=== PATIENT | male | born 1960 | race Caucasian/White ===

== ENCOUNTER 2020-04-09 16:15 | Observation (INO) ==
[2020-04-09] MEDS ORDERED: MoRPHine SULFATE 4 MG/ML 1 ML CARP\\VIAL IV PRN (16:28)
[2020-04-09] MEDS ORDERED: ONDANSETRON INJ 2 MG/ML 2 ML VIAL IV STA (16:28)
[2020-04-09] MEDS ORDERED: SODIUM CHLORIDE 0.9% 500 ML IV SCH (16:30)
--- NOTE | 2020-04-09 16:38 | Emergency Department Note ---
Impression & Plan Concussion, Laceration of scalp, Fall, Sprain of left shoulder, Vertigo ED Provider Note NAME: LISA HAMPTON AGE: 59 SEX: M : 1960 ARRIVES VIA: Ambulance INFORMANT: Patient, ED PROVIDER(S): Cj Rebolledo MD Chief Complaint: Fall, head LAC HPI: Patient reportedly [place] [address] when the patient states that he had pulled over to reattach the tarp when apparently it was not reattached well and the patient subsequently fell from the side of his trailer onto his left side. The patient does primarily complain of some mild posterior head left shoulder pain. The patient is right-hand dominant. 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 The patient does believe that he had LOC for approximately 30 seconds. The patient does take a low-dose baby aspirin as a preventative medication and has a history of hyperlipidemia. The patient otherwise does not complain of any additional pain at this time. Patient states that he did have a feeling of [id number] for short times but that has since resolved and patient does not have any focal numbness tingling or weakn ess. ROS: See HPI for pertinent positives and negatives. A total of 10 systems were reviewed and otherwise negative. Past medical history: See below Surgical history: See below Social history: See below Physical Exam: GENERAL: On a backboard and c-collar in place. NAD, non-toxic. EYE EXAM: Normal conjunctiva. PERRL, no anisocoria and EOM's grossly intact w/o pain. Head: Occipital head laceration 3 cm V-shaped, currently hemostatic. NECK: Supple, no nuchal rigidity, no adenopathy, non-tender. No signs of meningismus. C-collar in place. Trachea midline. S: No chest wall pain, laceration, crepitus or flail chest noted LUNGS: Clear to auscultation. Normal chest wall mechanics. HEART: NSR, no MRG. ABDOMEN: Abdomen soft, non-tender, normo-active bowel sounds, no masses, no rebound or guarding. BACK: No CVA TTP. SKIN: No rashes and no bruising. UPPER EXTREMITIES: Pain to the left shoulder. No obvious deformity. Slightly decreased range of motion secondary to pain but compartments are soft neurovascular intact distally. No right upper extremity pain or TTP. LOWER EXTREMITIES: Grossly normal, no edema. No leg length discrepancy or obvious deformity. No TTP. NEURO EXAM: A&O x3, cranial nerves II-XII grossly intact, normal speech, moves all 4 extremities on command w/o issue. Differential diagnoses: Fracture, dislocation, contusion, intra-abdominal, pneumothorax, intrathoracic, intracranial, neurologic, compartment syndrome, rhabdomyolysis, as well as other pathologies. Course: Patient was seen and evaluated the bedside. Full history physical exam was performed. EKG: None Imaging Studies: Radiology results as stated below per my review in the radiologist's inte rpretation: XR shoulder LT min 2V routine HISTORY: 59 years-old Male s/p fall w/ pain acute left shoulder pain status post fall COMPARISON: Chest radiograph of same day TECHNIQUE: 3 views of the left shoulder FINDINGS: Moderate AC joint with mild glenohumeral osteoarthritis. No acute fracture, dislocation or opaque foreign body. Imaged lung plaza appear clear. IMPRESSION: No acute fracture or dislocation. ACT 112: Negative or not required by law. The above report was generated using voice recognition software. It may contain grammatical, syntax or spelling errors. Electronically signed by: Ezequiel Argueta M.D. 04/09/2020 6:14 PM Dictated: 04/09/201812 Transcribed: 04/09/201812 CT head/brain wo con CLINICAL HISTORY: 59 years-old Male with s/p fall from [facility]. Acute head injury status post fall TECHNIQUE: Multiple axial CT images of the head were obtained without contrast. A dose lowering technique was utilized adhering to the principles of ALARA. CT DOSE: 638.56 mGycm COMPARISON: None. FINDINGS: No definite acute intracranial hemorrhage, midline shift, hydrocephalus, territorial ischemia or abnormal extra-axial collection. There is an ovoid 1.7 x 1.0 cm partially calcified lesion involving the periventricular white matter of the right frontal lobe on image 13 series 2. There is no significant surrounding vasogenic edema or mass effect. Megacisterna magna. The calvarium is intact. There is mild subcutaneous edema of the occipital scalp without large hematoma. The paranasal sinuses, mastoid air cells, and middle ear cavities are clear. IMPRESSION: 1. No acute intracranial hemorrhage or calvarial fracture. 2. Small contusion of the occipital scalp. 3. Ovoid 1.7 x 1.0 cm partially calcified lesion involving the periventricular white matter of the right frontal lobe is present without significant vasogenic edema or adjacent mass effect. This finding is concerning for a possible glial neoplasm and should be correlated with a nonemergent follow-up MRI of the brain with and without contrast ACT 112: Negative or not required by law. The above report was generated using voice recognition software. It may contain grammatical, syntax or spelling errors. Electronically signed by: Ezequiel Argueta M.D. 04/09/2020 5:14 PM Dictated: 04/09/201708 Transcribed: 04/09/201708 XR chest 1V portable HISTORY: 59 years-old Male s/p fall from tractor trailer trailer acute chest trauma status post fall COMPARISON: Left shoulder radiographs of same day TECHNIQUE: Portable AP view of the chest FINDINGS: Cardiomediastinal and hilar silhouettes are within normal limits. No pneumothorax, pleural effusion, airspace consolidation or overt pulmonary edema. Bones of the chest appear grossly intact. IMPRESSION: No acute process. ACT 112: Negative or not required by law. The above report was generated using voice recognition software. It may contain grammatical, syntax or spelling errors. Electronically signed by: Ezequiel Argueta M.D. 04/09/2020 6:15 PM Dictated: 04/09/201813 Transcribed: 04/09/201813 CT DOSE: 487.91 mGycm CLINICAL HISTORY: 59 years-old Male with s/p fall from tractor trailer trailer. Acute head and neck injury status post fall COMPARISON: Head CT of same day. TECHNIQUE: Multiple axial CT images of the cervical spine were obtained without contrast. A dose lowering technique was utilized adhering to the principles of ALARA. FINDINGS: Moderate to severe disc space narrowing at C6-C7 with moderate spondylitic spurring and posterior disc osteophyte complex. Mild to moderate disc space narrowing at C5-C6. Multilevel moderate spondylitic spurring with small posterior disc osteophyte complex formations. Moderate multilevel facet arthrosis. No acute fracture or subluxation. Mild kyphotic curvature centered at C6-C7. Minimal convex right curvature of the mid to lower cervical spine. Mastoid air cells are clear. Evaluation of the central canal and neuroforamina is better assessed by MRI. Multilevel foraminal narrowing is noted. No pneumothorax. Soft tissues are unremarkable. Calcified plaque of the carotid bulbs. No prevertebral soft tissue swelling. IMPRESSION: No acute fracture or subluxation. ACT 112: Negative or not required by law. The above report was generated using voice recognition software. It may contain grammatical, syntax or spelling errors. Electronically signed by: Ezequiel Argueta M.D. 04/09/2020 5:28 PM Dictated: 04/09/201723 Transcribed: 04/09/201723 MRI head: Impression: No evidence of acute infarction. 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 Otherwise, no mass lesion, mass-effect, or hemorrhage. Radiologist: Nabeel Lynn MD Cardiac monitoring: An order was placed for continuous cardiac monitoring. The monitor shows a rate of 88 with sinus rhythm. Seizures: Location: Occipital scalp Total length: 3 cm V shaped Complexity: Simple Verbal consent was obtained after the risks and benefits were explained, including but not limited to bleeding, scarring, infection, pain, and bone/joint/nerve damage. At this time, the risks of the procedure are less than the risks of NOT performing the procedure. A time out was taken and the correct patient and site identified. The skin was prepped with betadine. Copious irrigation was performed using sterile saline with small Fraire Betadine. The skin was re-prepped with betadine and a sterile field set. The wound was explored for foreign bodies and none found. Examination revealed no injury to deep structures such as tendons, bone, or significant blood vessels. Debridement was not performed. The wound edges were approximated using 3 kasandra. Hemostasis and excellent approximation was achieved.Detailed wound care instructions and signs and symptoms of infection reviewed with the patient. No complications and the patient tolerated the procedure well. MDM: Patient was seen due to concern for trauma. Blood work was obtained along a CT of the head and cervical spine. Patient did have a shoulder x-ray completed as well. The patient does not complain of any chest abdomen back or other pain. The patient was removed from his backboard while his C-spine position was maintained and the patient had no pain in the thoracic posterior back lower back or L-spine pain. Patient cervical spine was cleared. The patient had a normal white count H&H and platelet count. The patient does have creat of 1.5. Unknown as to whether or not this is his baseline or mild ELLIE. The patient did receive some IV fluids. The patient states that he was comfortable. Patient's CT of the head did show the concern for possible neoplasm of the brain. The patient was counseled on this and after discussion the patient would prefer to have this completed now do not think is unreasonable. Patient's CT of the head was negative for acute fracture or ICH. There is no evidence of any vasogenic edema. The patient's x-rays were negative. I did discuss the patient's MRI results with the on-call neurologist who stated that sometimes they can precipitate seizures but given the patient's age and lack of seizure activity this is less likely. She did recommend repeat imaging in approximately 6 months. After reassessment several times the patient has had significant dizziness and vertiginous symptoms after movement. Patient does not believe he be able to go home as the patient cannot walk comfortably without feeling very nauseous or wanting to vomit. The patient was ordered additional IV fluids and antiemetics. I did speak with the on-call hospitalist Dr. Lowery. Patient was admitted to the medicine service. Past Med/Surg History Medical History Hyperlipidemia Surgical History (Updated 04/10/20 @ 14:10 by Cj Rebolledo MD) No pertinent past surgical history Social History Smoking Status: Never smoker Hx Substance Use: No Preferred Language: [place] Communication Ability: Effective Crystal Lapper Required: No Beliefs That Will Affect Care: None Current Living Situation: Spouse Current Living Situation Comment: With and daughter Feels Safe at Home: Yes Safety Concerns: Feels Safe At This Time Allergies Allergies Allergy/AdvReac Type Severity Reaction Status Date / Time oxycodone AdvReac Vomiting Unverified 04/09/20 21:35 Home Meds Home Medications Medication Instructions Recorded Confirmed atorvastatin 0 mg PO HS 04/09/20 04/09/20 Results & Data (ED) Vital Signs Vital Signs - 24 hr 04/09/20 16:29 04/09/20 17:51 04/09/20 17:53 Temperature 36.8 C Temperature Source Oral Pulse Rate 88 Pulse Rate [Apical] 78 Pulse Rate from SpO2 Sensor Respiratory Rate 18 18 Respiratory Effort / Characteristics Respiratory Depth Respiratory Pattern Blood Pressure 142/89 H Blood Pressure [Left Arm] 130/74 Blood Pressure Mean 106 Blood Pressure Mean [Left Arm] 92 Blood Pressure Position [Left Arm] Pulse Oximetry 95 96 96 Oxygen Delivery Method Room Air Room Air Room Air Sepsis Recent Fever Within 48 Hours No Sepsis New/Unexplained Change in Mental Status No Sepsis Action Taken by Nursing No Action Required 04/09/20 19:30 04/09/20 19:38 04/09/20 19:40 Temperature Temperature Source Pulse Rate 81 82 85 Pulse Rate [Apical] 80 Pulse Rate from SpO2 Sensor 84 80 Respiratory Rate 17 22 13 Respiratory Effort / Characteristics Non-Labored Spontaneous Respiratory Depth Normal Respiratory Pattern Regular Blood Pressure 145/81 H Blood Pressure [Left Arm] 145/81 H Blood Pressure Mean 93 Blood Pressure Mean [Left Arm] 102 Blood Pressure Position [Left Arm] Sitting Pulse Oximetry 96 97 Oxygen Delivery Method Room Air Sepsis Recent Fever Within 48 Hours Sepsis New/Unexplained Change in Mental Status Sepsis Action Taken by Nursing 04/09/20 19:50 04/09/20 20:00 04/09/20 20:10 Temperature Temperature Source Pulse Rate 76 83 84 Pulse Rate [Apical] Pulse Rate from SpO2 Sensor 77 83 86 Respiratory Rate 19 13 23 Respiratory Effort / Characteristics Respiratory Depth Respiratory Pattern Blood Pressure Blood Pressure [Left Arm] Blood Pressure Mean Blood Pressure Mean [Left Arm] Blood Pressure Position [Left Arm] Pulse Oximetry 95 95 92 Oxygen Delivery Method Sepsis Recent Fever Within 48 Hours Sepsis New/Unexplained Change in Mental Status Sepsis Action Taken by Nursing 04/09/20 20:20 04/09/20 20:30 04/09/20 21:29 Temperature Temperature Source Pulse Rate 79 77 Pulse Rate [Apical] 67 Pulse Rate from SpO2 Sensor 78 Respiratory Rate 20 20 16 Respiratory Effort / Characteristics Non-Labored Spontaneous Respiratory Depth Normal Respiratory Pattern Regular Blood Pressure Blood Pressure [Left Arm] 115/68 Blood Pressure Mean Blood Pressure Mean [Left Arm] 83 Blood Pressure Position [Left Arm] Pulse Oximetry 94 97 Oxygen Delivery Method Room Air Sepsis Recent Fever Within 48 Hours Sepsis New/Unexplained Change in Mental Status Sepsis Action Taken by Nursing 04/09/20 21:33 04/09/20 21:35 04/09/20 21:40 Temperature Temperature Source Pulse Rate 74 69 71 Pulse Rate [Apical] Pulse Rate from SpO2 Sensor 74 70 70 Respiratory Rate 15 18 14 Respiratory Effort / Characteristics Respiratory Depth Respiratory Pattern Blood Pressure 115/68 Blood Pressure [Left Arm] Blood Pressure Mean 78 Blood Pressure Mean [Left Arm] Blood Pressure Position [Left Arm] Pulse Oximetry 94 94 93 Oxygen Delivery Method Sepsis Recent Fever Within 48 Hours Sepsis New/Unexplained Change in Mental Status Sepsis Action Taken by Nursing 04/09/20 21:50 04/09/20 22:00 04/09/20 22:01 Temperature Temperature Source Pulse Rate 64 64 67 Pulse Rate [Apical] Pulse Rate from SpO2 Sensor 62 65 67 Respiratory Rate 16 16 15 Respiratory Effort / Characteristics Respiratory Depth Respiratory Pattern Blood Pressure 113/74 Blood Pressure [Left Arm] Blood Pressure Mean 79 Blood Pressure Mean [Left Arm] Blood Pressure Position [Left Arm] Pulse Oximetry 96 93 91 Oxygen Delivery Method Sepsis Recent Fever Within 48 Hours Sepsis New/Unexplained Change in Mental Status Sepsis Action Taken by Nursing 04/09/20 22:10 04/09/20 22:20 04/09/20 22:30 Temperature Temperature Source Pulse Rate 67 61 62 Pulse Rate [Apical] Pulse Rate from SpO2 Sensor 67 63 63 Respiratory Rate 13 17 13 Respiratory Effort / Characteristics Respiratory Depth Respiratory Pattern Blood Pressure 113/76 Blood Pressure [Left Arm] Blood Pressure Mean 89 Blood Pressure Mean [Left Arm] Blood Pressure Position [Left Arm] Pulse Oximetry 93 96 95 Oxygen Delivery Method Sepsis Recent Fever Within 48 Hours Sepsis New/Unexplained Change in Mental Status Sepsis Action Taken by Nursing 04/09/20 22:31 04/09/20 22:40 04/09/20 22:50 Temperature Temperature Source Pulse Rate 65 58 L 67 Pulse Rate [Apical] Pulse Rate from SpO2 Sensor 66 59 L 68 Respiratory Rate 14 18 12 Respiratory Effort / Characteristics Respiratory Depth Respiratory Pattern Blood Pressure Blood Pressure [Left Arm] Blood Pressure Mean Blood Pressure Mean [Left Arm] Blood Pressure Position [Left Arm] Pulse Oximetry 94 93 95 Oxygen Delivery Method Sepsis Recent Fever Within 48 Hours Sepsis New/Unexplained Change in Mental Status Sepsis Action Taken by Nursing 04/09/20 23:00 04/09/20 23:01 04/09/20 23:10 Temperature Temperature Source Pulse Rate 63 75 67 Pulse Rate [Apical] Pulse Rate from SpO2 Sensor 63 78 67 Respiratory Rate 15 17 15 Respiratory Effort / Characteristics Respiratory Depth Respiratory Pattern Blood Pressure 123/69 Blood Pressure [Left Arm] Blood Pressure Mean 77 Blood Pressure Mean [Left Arm] Blood Pressure Position [Left Arm] Pulse Oximetry 94 95 92 Oxygen Delivery Method Sepsis Recent Fever Within 48 Hours Sepsis New/Unexplained Change in Mental Status Sepsis Action Taken by Nursing 04/09/20 23:20 04/09/20 23:30 04/09/20 23:31 Temperature Temperature Source Pulse Rate 66 69 67 Pulse Rate [Apical] Pulse Rate from SpO2 Sensor 66 69 68 Respiratory Rate 14 13 13 Respiratory Effort / Characteristics Respiratory Depth Respiratory Pattern Blood Pressure 118/68 Blood Pressure [Left Arm] Blood Pressure Mean 79 Blood Pressure Mean [Left Arm] Blood Pressure Position [Left Arm] Pulse Oximetry 94 93 92 Oxygen Delivery Method Sepsis Recent Fever Within 48 Hours Sepsis New/Unexplained Change in Mental Status Sepsis Action Taken by Nursing 04/09/20 23:40 04/09/20 23:50 Temperature Temperature Source Pulse Rate 68 69 Pulse Rate [Apical] Pulse Rate from SpO2 Sensor 69 69 Respiratory Rate 14 16 Respiratory Effort / Characteristics Respiratory Depth Respiratory Pattern Blood Pressure Blood Pressure [Left Arm] Blood Pressure Mean Blood Pressure Mean [Left Arm] Blood Pressure Position [Left Arm] Pulse Oximetry 92 92 Oxygen Delivery Method Sepsis Recent Fever Within 48 Hours Sepsis New/Unexplained Change in Mental Status Sepsis Action Taken by [facility] Medications Current Medication List: was personally reviewed by me Laboratory Data Attestation: I reviewed the patient's lab results. Result diagrams: 04/09/20 16:43 04/10/20 08:24 Lab Results 04/09/20 04/09/20 04/09/20 Range/Units 16:43 16:43 16:43 WBC 9.16 (4.8-10.8) K/uL RBC 5.01 (4.7-6.1) M/uL Hgb 15.5 (14.0-18.0) g/dL Hct 44.3 (42-52) % MCV 88.4 (80-100) fL MCH 30.9 (25-34) pg MCHC 35.0 (32-36) g/dL RDW Std Deviation 42.0 (36.4-46.3) fL RDW Coeff of Isaac 13.0 (11.5-14.5) % Plt Count 250 (130-400) K/uL MPV 10.2 (7.4-10.4) fL Immature Gran % (Auto) 0.4 % Neut % (Auto) 78.0 % Lymph % (Auto) 13.0 % Garland % (Auto) 7.5 % Eos % (Auto) 0.9 % Baso % (Auto) 0.2 % Neut # (Auto) 7.14 H (1.4-6.5) K/uL Lymph # (Auto) 1.19 L (1.2-3.4) K/uL Garland # (Auto) 0.69 H (0.11-0.59) K/uL Eos # (Auto) 0.08 (0-0.5) K/uL Baso # (Auto) 0.02 (0-0.2) K/uL Immature Gran # (Auto) 0.04 H (0.00-0.02) K/uL Sodium 143 (136-145) mmol/L Potassium 4.3 (3.5-5.1) mmol/L Chloride 111 H (98-107) mmol/L Carbon Dioxide 25 (21-32) mmol/L Anion Gap 7.0 (3-11) BUN 25 H (7-18) mg/dl Creatinine 1.58 H (0.6-1.4) mg/dl Est Cr Clr Drug Dosing 64.0 ml/min Est GFR ( Amer) 53.9 Est GFR (Non-Af Amer) 46.5 BUN/Creatinine Ratio 15.9 (10-20) Glucose 117 H (70-99) mg/dl Calcium 9.4 (8.5-10.1) mg/dl Hepatitis C Ab Screen Neg (Neg) Administered Medications Sodium Chloride (Nss 1000ml) 1,000 mls @ 125 mls/hr IV .Q8H [facility] Stop: 05/10/20 02:59 Last Admin: 04/10/20 11:01 Dose: 125 mls/hr Documented by: [id number] Infusion: 04/10/20 10:55 Dose: 125 mls/hr Documented by: [id number] Admin: 04/10/20 02:55 Dose: 125 mls/hr Documented by: [id number] Discontinued Medications Gadobutrol (Gadavist 65ml) 11.3 ml IV ONCE ONE Stop: 04/09/20 21:10 Last Admin: 04/09/20 21:09 Dose: 11.3 ml Documented by: [id number] Sodium Chloride (Nss) 500 mls @ 999 mls/hr IV .Q31M NILA Stop: 04/09/20 17:00 Last Infusion: 04/09/20 17:40 Dose: 0 mls/hr Documented by: [id number] Admin: 04/09/20 16:58 Dose: 999 mls/hr Documented by: [id number] Prochlorperazine (Compazine) 2 mls @ 1 mls/min IV ONE ONE Stop: 04/09/20 22:31 Last Admin: 04/09/20 22:37 Dose: 1 mls/min Documented by: [id number] Sodium Chloride (Nss) 500 mls @ 125 mls/hr IV .Q4H NILA Stop: 05/09/20 22:29 Last Admin: 04/10/20 02:57 Dose: Not Given Documented by: [id number] Infusion: 04/10/20 02:55 Dose: 0 mls/hr Documented by: [id number] Admin: 04/09/20 22:37 Dose: 125 mls/hr Documented by: [id number] Ketorolac Tromethamine (Toradol) 30 mg IV NOW STA Stop: 04/09/20 21:43 Last Admin: 04/09/20 21:47 Dose: 30 mg Documented by: [id number] Lidocaine/Epinephrine (Xylocaine/Epinephrine 1%) 20 ml INFIL NOW ONE Stop: 04/09/20 21:43 Last Admin: 04/09/20 21:47 Dose: 20 ml Documented by: [id number] Ondansetron HCl (Zofran) 4 mg IV NOW STA Stop: 04/09/20 16:29 Last Admin: 04/09/20 21:29 Dose: 4 mg Documented by: [id number] Ondansetron HCl (Zofran) Confirm Administered Dose 4 mg .ROUTE .STK-MED ONE Stop: 04/09/20 21:29 Last Admin: 04/09/20 21:29 Dose: Not Given Documented by: [id number] Discharge Plan Visit Data *Final* Discharge Date/Time: 04/10/20 00:25 Chief Complaint: Fall Stated Complaint: FALL FROM 8 TO 10', LAC TO HEAD ED Provider: Cj Rebolledo Discharge Problem: Concussion, Laceration of scalp, Fall, Sprain of left shoulder, Vertigo Patient Disposition: Admitted As Inpatient Discharge Instructions Interventions: ED Discharge Assessment Last Done: 04/10/20 00:25 Discharge Problem: Concussion Qualifiers: Encounter type: initial encounter Loss of consciousness presence/duration: with LOC of 30 min or less Qualified Code(s): S06.0X1A - Concussion with loss of consciousness of 30 minutes or less, initial encounter Laceration of scalp Qualifiers: Encounter type: initial encounter Qualified Code(s): S01.01XA - Laceration without foreign body of scalp, initial encounter Fall Qualifiers: Encounter type: initial encounter Qualified Code(s): W19.XXXA - Unspecified fall, initial encounter Sprain of left shoulder Qualifiers: Encounter type: initial encounter Shoulder sprain type: unspecified sprain Qualified Code(s): S43.402A - Unspecified sprain of left shoulder joint, initial encounter
[2020-04-09 17:09] LABS: Basophils # (auto) 0.02 K/uL (0-0.2); Basophils % (auto) 0.2 %; Eosinophils # (auto) 0.08 K/uL (0-0.5); Eosinophils % (auto) 0.9 %; Hematocrit (blood only) 44.3 % (42-52); Hemoglobin 15.5 g/dL (14.0-18.0); Immature Granulocytes # (auto) 0.04 K/uL (0.00-0.02); Immature Granulocytes % (auto) 0.4 %; Lymphocytes # (auto) 1.19 K/uL (1.2-3.4); Mean Corpuscular Hemoglobin 30.9 pg (25-34); Mean Corpuscular Volume 88.4 fL (80-100); Mean Platelet Volume 10.2 fL (7.4-10.4); Monocytes # (auto) 0.69 K/uL (0.11-0.59); Monocytes % (auto) 7.5 %; Neutrophils # (auto) 7.14 K/uL (1.4-6.5); Platelet Count 250 K/uL (130-400); Red Blood Count 5.01 M/uL (4.7-6.1); White Blood Count 9.16 K/uL (4.8-10.8)
--- NOTE | 2020-04-09 17:15 | CT Scan Report ---
CT head/brain wo con CLINICAL HISTORY: 59 years-old Male with s/p fall from tractor trailer trailer. Acute head injury st at[facility] post fall TECHNIQUE: Multiple axial CT images of the head were obtained without contrast. A dose lowering tech nique was utilized adhering to the principles of ALARA. CT DOSE: 638.56 mGycm COMPARISON: None. FINDINGS: No definite acute intracranial hemorrhage, midline shift, hydrocephalus, territorial ischemia or abno rmal extra-axial collection. There is an ovoid 1.7 x 1.0 cm partially calcified lesion involving the periventricular white matter of the right frontal lobe on image 13 series 2. There is no significant surrounding vasogenic edema or mass effect. Megacisterna magna. The calvarium is intact. There is mild subcutaneous edema of the occipital scalp without large hemato ma. The paranasal sinuses, mastoid air cells, and middle ear cavities are clear. IMPRESSION: 1. No acute intracranial hemorrhage or calvarial fracture. 2. Small contusion of the occipital scalp. 3. Ovoid 1.7 x 1.0 cm partially calcified lesion involving the periventricular white matter of the ri ght frontal lobe is present without significant vasogenic edema or adjacent mass effect. This finding is concerning for a possible glial neoplasm and should be correlated with a nonemergent follow-up MR I of the brain with and without contrast ACT 112: Negative or not required by law. The above report was generated using voice recognition software. It may contain grammatical, syntax o r spelling errors. Electronically signed by: Ezequiel Argueta M.D. 04/09/2020 5:14 PM
[2020-04-09 17:25] LABS: BUN Creatinine Ratio 15.9 (10-20); Calcium 9.4 mg/dl (8.5-10.1); Est GFR (African American) 53.9; Est GFR (Non-African American) 46.5; Potassium 4.3 mmol/L (3.5-5.1)
--- NOTE | 2020-04-09 17:30 | CT Scan Report ---
CT cervical spine wo con CT DOSE: 487.91 mGycm CLINICAL HISTORY: 59 years-old Male with s/p fall from tractor trailer trailer. Acute head and neck injury status post fall COMPARISON: Head CT of same day. TECHNIQUE: Multiple axial CT images of the cervical spine were obtained without contrast. A dose low ering technique was utilized adhering to the principles of ALARA. FINDINGS: Moderate to severe disc space narrowing at C6-C7 with moderate spondylitic spurring and posterior dis c osteophyte complex. Mild to moderate disc space narrowing at C5-C6. Multilevel moderate spondylitic spurring with small posterior disc osteophyte complex formations. Moderate multilevel facet arthrosi s. No acute fracture or subluxation. Mild kyphotic curvature centered at C6-C7. Minimal convex right curvature of the mid to lower cervical spine. Mastoid air cells are clear. Evaluation of the central canal and neuroforamina is better assessed by MRI. Multilevel foraminal narrowing is noted. No pneumothorax. Soft tissues are unremarkable. Calcified plaque of the carotid bulbs. No prevertebra l soft tissue swelling. IMPRESSION: No acute fracture or subluxation. ACT 112: Negative or not required by law. The above report was generated using voice recognition software. It may contain grammatical, syntax o r spelling errors. Electronically signed by: Ezequiel Argueta M.D. 04/09/2020 5:28 PM
--- NOTE | 2020-04-09 18:15 | XRay Report ---
XR shoulder LT min 2V routine HISTORY: 59 years-old Male s/p fall w/ pain acute left shoulder pain status post fall COMPARISON: Chest radiograph of same day TECHNIQUE: 3 views of the left shoulder FINDINGS: Moderate AC joint with mild glenohumeral osteoarthritis. No acute fracture, dislocation or opaque for eign body. Imaged lung plaza appear clear. IMPRESSION: No acute fracture or dislocation. ACT 112: Negative or not required by law. The above report was generated using voice recognition software. It may contain grammatical, syntax o r spelling errors. Electronically signed by: Ezequiel Argueta M.D. 04/09/2020 6:14 PM
--- NOTE | 2020-04-09 18:16 | XRay Report ---
XR chest 1V portable HISTORY: 59 years-old [facility] status post fall COMPARISON: Left shoulder radiographs of same day TECHNIQUE: Portable AP view of the chest FINDINGS: Cardiomediastinal and hilar silhouettes are within normal limits. No pneumothorax, pleural effusion, airspace consolidation or overt pulmonary edema. Bones of the chest appear grossly intact. IMPRESSION: No acute process. ACT 112: Negative or not required by law. The above report was generated using voice recognition software. It may contain grammatical, syntax o r spelling errors. Electronically signed by: Ezequiel Argueta M.D. 04/09/2020 6:15 PM
[2020-04-09] MEDS ORDERED: GADOBUTROL 65ML VIAL IV ONE (21:09)
[2020-04-09] MEDS ORDERED: ONDANSETRON INJ 2 MG/ML 2 ML VIAL ONE (21:28)
[2020-04-09] MEDS ORDERED: LIDOCAINE/EPINEPHRINE 1% 20 ML VIAL INFIL ONE (21:42)
[2020-04-09] MEDS ORDERED: KETOROLAC 30 MG/ML VIAL IV STA (21:42)
[2020-04-09] MEDS ORDERED: PROCHLORPERAZINE 2 ML IV ONE (22:30)
[2020-04-09] MEDS: SODIUM CHLORIDE 0.9% 500 ML IV SCH (22:37)
--- NOTE | 2020-04-09 23:58 | History & Physical Report ---
Date of Service April 09, 2020 Assessment & Plan (1) Concussion: Concussion/postconcussive syndrome with vertigo and ambulatory dysfunction- Admit to monitored bed overnight. Symptomatic treatment with meclizine Present on Admission?: Yes (2) Vertigo: See above Present on Admission?: Yes (3) Sprain of left shoulder: X-ray without acute findings. Present on Admission?: Yes (4) Fall: See above Present on Admission?: Yes (5) Hyperlipidemia: Continue Lipitor 40 mg daily Present on Admission?: Yes (6) Laceration of scalp: Repaired in the ED. Will follow routine post wound care Present on Admission?: Yes History of Present Illness Chief Complaint: Patient presents to the emergency department after falling from the side of his tractor-trailer onto his left side while trying to reattach a tarp. Primary Care Provider: NO PCP The patient is a 59-year-old male with a past medical history including hyperlipidemia, who presents to the emergency department with the above history. He did undergo a laceration of his scalp, which was sutured while in the ED, and underwent x-rays for a left shoulder sprain, and had a negative CT of the head for acute event. On CT there was notation of a 1.7 x 1.0 cm lesion in his right frontal lobe, and this was verified by MRI of brain to be a cavernoma. Because of persistent vertigo and inability to ambulate, along with intermittent headaches, patient was referred for evaluation for admission. 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 Required: No Beliefs That Will Affect Care: None Current Living Situation: Spouse Current Living Situation Comment: With and daughter Feels Safe at Home: Yes Safety Concerns: Feels Safe At This Time Review of Systems Review of Systems: The patient denies chest pain, palpitations, shortness of breath, dyspnea on exertion, cough, lower extremity swelling, sore throat, fevers, chills, sweats, nausea, vomiting, diarrhea , constipation, abdominal pain, pelvic pain, blood in urine or stool, dysuria, urinary frequency or urgency, memory loss, loss of consciousness, rash, abnormal bruising or bleeding, focal weakness, numbness or tingling in arms or legs, generalized arthralgias or myalgias, back or neck pain, or night sweats. The review of systems is otherwise negative other than for that already noted above, and at least 10 systems have been reviewed. Physical Exam Physical Exam: The patient is awake, alert and oriented 3, well developed and well nourished, lying in bed and in no acute distress. HEENT--PERRL, EOMI, mucous membranes and oropharynx normal. Neck--supple. No JVD. No bruits. Thyroid normal, trachea midline, no adenopathy. Heart--normal S1 and S2. No murmurs, rubs or gallops. Lungs--clear bilaterally, no respiratory distress, no accessory muscle use. Abdomen--normal bowel sounds and soft. Nontender. Nondistended. Extremities--no cyanosis or clubbing. No edema. There are good distal pulses b/l. Dermatologic--normal skin turgor, normal color, no abnormal lymph nodes, no rash. Neurologic--cranial nerves II through XII grossly intact. Rheumatologic--decreased range of motion left shoulder due to pain. Psychiatric--normal affect. Results & Data Results & Data ([facility]) Vital Signs (Past 12 Hours) Vital Signs Temp Pulse Pulse Resp BP BP Pulse Ox 04/09/20 23:50 69 16 92 04/09/20 23:40 68 14 92 04/09/20 23:31 67 13 92 04/09/20 23:30 69 13 118/68 93 04/09/20 23:20 66 14 94 04/09/20 23:10 67 15 92 04/09/20 23:01 75 17 95 04/09/20 23:00 63 15 123/69 94 04/09/20 22:50 67 12 95 04/09/20 22:40 58 L 18 93 04/09/20 22:31 65 14 94 04/09/20 22:30 62 13 113/76 95 04/09/20 22:20 61 17 96 04/09/20 22:10 67 13 93 04/09/20 22:01 67 15 91 04/09/20 22:00 64 16 113/74 93 04/09/20 21:50 64 16 96 04/09/20 21:40 71 14 93 04/09/20 21:35 69 18 115/68 94 04/09/20 21:33 74 15 94 04/09/20 21:29 67 16 115/68 97 04/09/20 20:30 77 20 04/09/20 20:20 79 20 94 04/09/20 20:10 84 23 92 04/09/20 20:00 83 13 95 04/09/20 19:50 76 19 95 04/09/20 19:40 85 13 97 04/09/20 19:38 82 80 22 145/81 H 145/81 H 96 04/09/20 19:30 81 17 04/09/20 17:53 96 04/09/20 17:51 78 18 130/74 96 04/09/20 16:29 98.2 F 88 18 142/89 H 95 Laboratory Results Laboratory Results WBC 9.16 K/uL (4.8-10.8) 04/09/20 16:43 RBC 5.01 M/uL (4.7-6.1) 04/09/20 16:43 Hgb 15.5 g/dL (14.0-18.0) 04/09/20 16:43 Hct 44.3 % (42-52) 04/09/20 16:43 MCV 88.4 fL (80-100) 04/09/20 16:43 MCH 30.9 pg (25-34) 04/09/20 16:43 MCHC 35.0 g/dL (32-36) 04/09/20 16:43 RDW Std Deviation 42.0 fL (36.4-46.3) 04/09/20 16:43 RDW Coeff of Isaac 13.0 % (11.5-14.5) 04/09/20 16:43 Plt Count 250 K/uL (130-400) 04/09/20 16:43 MPV 10.2 fL (7.4-10.4) 04/09/20 16:43 Immature Gran % (Auto) 0.4 % 04/09/20 16:43 Neut % (Auto) 78.0 % 04/09/20 16:43 Lymph % (Auto) 13.0 % 04/09/20 16:43 [place] % (Auto) 7.5 % 04/09/20 16:43 Eos % (Auto) 0.9 % 04/09/20 16:43 Baso % (Auto) 0.2 % 04/09/20 16:43 Neut # (Auto) 7.14 K/uL (1.4-6.5) H 04/09/20 16:43 Lymph # (Auto) 1.19 K/uL (1.2-3.4) L 04/09/20 16:43 [place] # (Auto) 0.69 K/uL (0.11-0.59) H 04/09/20 16:43 Eos # (Auto) 0.08 K/uL (0-0.5) 04/09/20 16:43 Baso # (Auto) 0.02 K/uL (0-0.2) 04/09/20 16:43 Immature Gran # (Auto) 0.04 K/uL (0.00-0.02) H 04/09/20 16:43 Sodium 143 mmol/L (136-145) 04/09/20 16:43 Potassium 4.3 mmol/L (3.5-5.1) 04/09/20 16:43 Chloride 111 mmol/L (98-107) H 04/09/20 16:43 Carbon Dioxide 25 mmol/L (21-32) 04/09/20 16:43 Anion Gap 7.0 (3-11) 04/09/20 16:43 BUN 25 mg/dl (7-18) H 04/09/20 16:43 Creatinine 1.58 mg/dl (0.6-1.4) H 04/09/20 16:43 Est Cr Clr Drug Dosing 64.0 ml/min 04/09/20 16:43 Est GFR ( Amer) 53.9 04/09/20 16:43 Est GFR (Non-Af Amer) 46.5 04/09/20 16:43 BUN/Creatinine Ratio 15.9 (10-20) 04/09/20 16:43 Glucose 117 mg/dl (70-99) H 04/09/20 16:43 Calcium 9.4 mg/dl (8.5-10.1) 04/09/20 16:43 [phone] Scan Report Patient: LISA HAMPTON Date: 04/09/20 MR#: [id number]: [address] Acct ID:[id number]: [facility]: 1960[facility] Zip[facility] [place] [address] Age: 59Location: ED Sex: M Room/Bed: Att Phy:Diagnosis: FALL FROM 8 TO 10', LAC TO HEAD Rosey Phy: PCP,NOService Date: 04/09/20 Fam Phy:Interpreting Phy: Eliu Argueta Admit Phy: Ordering Phy: Cj Rebolledo MD cc: ~ CT cervical spine wo con CT DOSE: 487.91 mGycm CLINICAL HISTORY: 59 years-old Male with s/p fall from [employer]. Acute head and neck injury status post fall COMPARISON: Head CT of same day. TECHNIQUE: Multiple axial CT images of the cervical spine were obtained without contrast. A dose lowering technique was utilized adhering to the principles of ALARA. FINDINGS: Moderate to severe disc space narrowing at C6-C7 with moderate spondylitic spurring and posterior disc osteophyte complex. Mild to moderate disc space narrowing at C5-C6. Multilevel moderate spondylitic spurring with small posterior disc osteophyte complex formations. Moderate multilevel facet arthrosis. No acute fracture or subluxation. Mild kyphotic curvature centered at C6-C7. Minimal convex right curvature of the mid to lower cervical spine. Mastoid air cells are clear. Evaluation of the central canal and neuroforamina is better assessed by MRI. Multilevel foraminal narrowing is noted. No pneumothorax. Soft tissues are unremarkable. Calcified plaque of the carotid bulbs. No prevertebral soft tissue swelling. IMPRESSION: No acute fracture or subluxation. ACT 112: Negative or not required by law. The above report was generated using voice recognition software. It may contain grammatical, syntax or spelling errors. Electronically signed by: Ezequiel Argueta M.D. 04/09/2020 5:28 PM Dictated: 04/09/201723 Transcribed: 04/09/20 172 [phone] XRay Report Patient: LISA HAMPTON Date: 04/09/20 MR#: [id number]: [address] Acct ID:[id number]: Date: 1960[facility] Zip: [place] [address] Age: 59Location: ED Sex: M Room/Bed: Att Phy:Diagnosis: FALL FROM 8 TO 10', LAC TO HEAD Rosey Phy: PCP,NOService Date: 04/09/20 Fam Phy:Interpreting Phy: Eliu Argueta Admit Phy: Ordering Phy: Cj Rebolledo MD cc: ~ XR chest 1V portable HISTORY: 59 years-old Male s/p fall from [facility] acute chest trauma status post fall COMPARISON: Left shoulder radiographs of same day TECHNIQUE: Portable AP view of the chest FINDINGS: Cardiomediastinal and hilar silhouettes are within normal limits. No pneumothorax, pleural effusion, airspace consolidation or overt pulmonary edema. Bones of the chest appear grossly intact. IMPRESSION: No acute process. ACT 112: Negative or not required by law. The above report was generated using voice recognition software. It may contain grammatical, syntax or spelling errors. Electronically signed by: Ezequiel Argueta M.D. 04/09/2020 6:15 PM Dictated: 04/09/201813 Transcribed: 04/09/201813 [facility] [place] [phone] CT Scan Report Patient: LISA HAMPTON Date: 04/09/20 MR#: [id number]: [address] Acct ID:[id number]: Date: 1960[facility] Zip: [place] [address] Age: 59Location: ED Sex: M Room/Bed: Att Phy:Diagnosis: FALL FROM 8 TO 10', LAC TO HEAD Rosey Phy: PCP,NOService Date: 04/09/20 Fam Phy:Interpreting Phy: Eliu Argueta Admit Phy: Ordering Phy: Cj Rebolledo MD cc: ~ CT head/brain wo con CLINICAL HISTORY: 59 years-old Male with s/p fall from [employer] trailer. Acute head injury status post fall TECHNIQUE: Multiple axial CT images of the head were obtained without contrast. A dose lowering technique was utilized adhering to the principles of ALARA. CT DOSE: 638.56 mGycm COMPARISON: None. FINDINGS: No definite acute intracranial hemorrhage, midline shift, hydrocephalus, territorial ischemia or abnormal extra-axial collection. There is an ovoid 1.7 x 1.0 cm partially calcified lesion involving the periventricular white matter of the right frontal lobe on image 13 series 2. There is no significant surrounding vasogenic edema or mass effect. Megacisterna magna. The calvarium is intact. There is mild subcutaneous edema of the occipital scalp without large hematoma. The paranasal sinuses, mastoid air cells, and middle ear cavities are clear. IMPRESSION: 1. No acute intracranial hemorrhage or calvarial fracture. 2. Small contusion of the occipital scalp. 3. Ovoid 1.7 x 1.0 cm partially calcified lesion involving the periventricular white matter of the right frontal lobe is present without significant vasogenic edema or adjacent mass effect. This finding is concerning for a possible glial neoplasm and should be correlated with a nonemergent follow-up MRI of the brain with and without contrast ACT 112: Negative or not required by law. The above report was generated using voice recognition software. It may contain grammatical, syntax or spelling errors. Electronically signed by: Ezequiel Argueta M.D. 04/09/2020 5:14 PM Dictated: 04/09/201708 Transcribed: 04/09/201708 [phone] XRay Report Patient: LISA HAMPTON Date: 04/09/20 MR#: [id number]: [address] Acct ID:[id number]: Date: 1960[facility] Zip: [place] [address] Age: 59Location: ED Sex: M Room/Bed: Att Phy:Diagnosis: FALL FROM 8 TO 10', LAC TO HEAD Rosey Phy: PCP,NOService Date: 04/09/20 Fam Phy:Interpreting Phy: Eliu Argueta Admit Phy: Ordering Phy: Cj Rebolledo MD cc: ~ XR shoulder LT min 2V routine HISTORY: 59 years-old Male s/p fall w/ pain acute left shoulder pain status post fall COMPARISON: Chest radiograph of same day TECHNIQUE: 3 views of the left shoulder FINDINGS: Moderate AC joint with mild glenohumeral osteoarthritis. No acute fracture, dislocation or opaque foreign body. Imaged lung plaza appear clear. IMPRESSION: No acute fracture or dislocation. ACT 112: Negative or not required by law. The above report was generated using voice recognition software. It may contain grammatical, syntax or spelling errors. Electronically signed by: Ezequiel Argueta M.D. 04/09/2020 6:14 PM Dictated: 04/09/201812 Transcribed: 04/09/201812 [facility] Patient: LISA HAMPTON (Male) : 56 Status: ER Date: 04/09/20 21:25 Room #: History: R/O NEOPLASM. C/O DIZZINESS. CONCUSSION. 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 LACERATION TO HEAD. NO PRIOR SURGERY. NO HX OF CANCER. 11.3 CC GADAVIST ADMINISTERED. GFR 46.5 8-3-20. Slices: 549 Priors: ct head wo Tech: Sherri Franks @ [phone] Exams: MRI HEAD Contrast: IV Amt: 11.3cc gadavist Accession Numbers: [id number] Preliminary Findings Only See Final Report For Complete Findings MRI HEAD : Impression: No evidence of acute infarction. Nonenhancing 12 x 18 x 19 mm lesion in the right thurman radiata adjacent to the frontal horn of the right lateral ventricle with hemosiderin rim and intrinsic T1 weighted hyperintensity, favored to represent a cavernoma. Otherwise, no mass lesion, mass effect, or hemorrhage. Radiologist: Nabeel Lynn MD Study ready at 21:27 and initial results transmitted at 21:44 *This report constitutes a preliminary interpretation only. Non-acute findings felt to be unrelated to the clinical presentation may not be discussed in this report. The study will be interpreted and a final report will be generated by the local Radiologist the following shift. To reach the hospital radiology depa rtment call [phone]. If a discrepancy is found between the preliminary and final interpretations of this study, please notify us via our Client Portal at [email or web address] under QA Exams.You can also fax this report with a description of the discrepancy, or include the final report, to our daytime fax number [phone].If faxing, please indicate the severity of discrepancy using one of the following categories: [ ] 1 - Agree/Informational [ ] 2 - Unlikely to Affect Management [ ] 3 - Possible Eventual Change of Management [ ] 4 - Probable Immediate Change of Management For all other patient related information, please fax us at [phone]. [id number] Code Status & VTE Plan Code Status Full code VTE Prophylaxis Plan VTE Prophylaxis will be ordered: Yes PG Care Time/CCT Total # of Minutes Spent Total Time Spent with Patient: Total time spent is greater than 50% in coordination of care (as documented) at patient's floor/unit and/or counseling patient: Coding Level of Care Code 72277 OBS Care - Level 3 Diagnoses Concussion S06.0X1A Encounter type: initial encounter Loss of consciousness presence/duration: with LOC of 30 min or less Vertigo R42 Sprain of left shoulder S43.402A Encounter type: initial encounter Shoulder sprain type: unspecified sprain Fall W19.XXXA Encounter type: initial encounter Hyperlipidemia E78.5 Laceration of scalp S01.01XA Encounter type: initial encounter (1) Concussion Encounter type: initial encounter Loss of consciousness presence/duration: with LOC of 30 min or less Qualified Code(s): S06.0X1A - Concussion with loss of consciousness of 30 minutes or less, initial encounter (2) Sprain of left shoulder Encounter type: initial encounter Shoulder sprain type: unspecified sprain Qualified Code(s): S43.402A - Unspecified sprain of left shoulder joint, initial encounter (3) Fall Encounter type: initial encounter Qualified Code(s): W19.XXXA - Unspecified fall, initial encounter (4) Laceration of scalp Encounter type: initial encounter Qualified Code(s): S01.01XA - Laceration without foreign body of scalp, initial encounter
[2020-04-10] MEDS ORDERED: ONDANSETRON INJ 2 MG/ML 2 ML VIAL IV PRN (00:58)
[2020-04-10] MEDS ORDERED: ACETAMINOPHEN 325 MG TAB PO PRN (00:58)
[2020-04-10] MEDS ORDERED: ALUMINUM/MAGNESIUM SUSP 30 ML UDC PO PRN (00:58)
[2020-04-10] MEDS ORDERED: MAGNESIUM HYDROXIDE SUSP 30 ML UDC PO PRN (00:58)
[2020-04-10] MEDS: SODIUM CHLORIDE 0.9% 1000ML 1,000 ML IV SCH ×3 (02:55→19:29)
[2020-04-10] MEDS: SODIUM CHLORIDE 0.9% 500 ML IV SCH (02:57)
--- NOTE | 2020-04-10 06:42 | Magnetic Resonance Report ---
MRI OF THE BRAIN WITHOUT AND WITH IV CONTRAST CLINICAL HISTORY: Dizziness, concussion. Laceration. ABNORMAL HEAD CT. POSSIBLE GLIAL NEOPLASM. COMPARISON STUDY: CT scan dated April 09, 2020 TECHNIQUE: MRI of the brain was performed from the vertex to the skull base utilizing various T1 and T2 weighted sequences. Following the IV administration of 11.3 mL of Gadavist contrast, additional en hanced images were obtained. FINDINGS: Sagittal T1, axial diffusion, proton density and T2 weighted axial, coronal FLAIR, and pre and post a xial T1-weighted images were acquired. These were supplemented with post gadolinium coronal T1 weight ed images. There is an 18 mm calcified lesion within the right frontal white matter abutting the anterior horn o f the right lateral ventricle. This lesion demonstrates peripheral calcification. There is no signifi cant mass effect. There is no significant postcontrast enhancement. Axial diffusion-weighted images reveal no evidence of acute or subacute infarction. There is no evidence of ventricular dilatation. Proton density T2-weighted and FLAIR images reveal the right frontal lesion. No significant additiona l signal abnormalities are visualized. There are no abnormal flow voids. There is no evidence of pathologic enhancement. IMPRESSION: 18 mm calcified lesion within the right frontal white matter demonstrating a hemosiderin rim. There is no significant mass effect, no pathologic enhancement. Imaging characteristics favor a cavernoma. A 6-12 month follow-up study might be considered to confirm stability ACT 112: Negative or not required by law. Electronically signed by: Scott Damian M.D. 04/10/2020 6:41 AM
[2020-04-10 09:08] LABS: BUN Creatinine Ratio 18.6 (10-20); Calcium 8.5 mg/dl (8.5-10.1); Creatinine Clr Calc Pharmacy 74.3 ml/min; Est GFR (Non-African American) 57.8; Potassium 4.3 mmol/L (3.5-5.1)
--- NOTE | 2020-04-10 11:05 | Electrocardiogram Report ---
Test Reason : Blood Pressure : / mmHG Vent. Rate : 071 BPM Atrial Rate : 071 BPM P-R Int : 164 ms QRS Dur : 106 ms QT Int : 358 ms P-R-T Axes : 044 -25 044 degrees QTc Int : 389 ms Normal sinus rhythm Normal ECG No previous ECGs available Confirmed by Prosper Gonzales ([id number]) on 04/10/2020 11:04:41 AM Referred By: REFERRED SELF Confirmed By:Adrian Gonzales
--- NOTE | 2020-04-10 14:16 | Hospitalist Progress Note ---
Date of Service April 10, 2020 Assessment & Plan (1) Concussion: Concussion/postconcussive syndrome with vertigo and ambulatory dysfunction-slightly improved -No headaches, no nausea, no visual changes, still seems to have some mild psychomotor retardation Vertigo is improved MRI of the brain with possible cavernoma -Consult neurology for further input (2) Vertigo: See above (3) Sprain of left shoulder: X-ray without acute findings, no fracture -With exquisite tenderness to palpation over the long head of the biceps tendon and poor range of motion secondary to pain at this time -Recommend ice pack every shift, shoulder sling for now Tylenol as needed for pain -Outpatient follow-up with PCP and/or orthopedic surgery (4) Fall: See above-fell accidentally from his truck about 6 to 8 feet and landed on the pavement PT/OT evaluations (5) Hyperlipidemia: Continue Lipitor 40 mg daily Patient reports he previously was on several different medications for significantly elevated cholesterol, but he ran out and was not given refills as his PCP would not fill it without seeing him in the office. He was not able to be seen due to COVID. -Would plan on giving him at least a 30-day supply of his Lipitor upon discharge from the hospital at his request until he can get into see his PCP in [place] (6) Laceration of scalp: Repaired in the ED. 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 seen on brain MRI Appreciate neurology input on this as far as any follow-up that is needed Only focal neurologic abnormality I see is that his tongue protrudes to the right, unsure if this is related (8) ANNE on CPAP: Does not have his home CPAP here, but using 2 L nasal cannula at nighttime (9) ELLIE (acute kidney injury): Creatinine elevated upon admission at 1.5 and is now down to 1.32 Unclear what baseline is Continue normal saline at 125 mL's per hour -Follow BMP in the morning (10) DVT prophylaxis: SCDs Dispo-continued stay, remain on observation as per case management recommendation Hopeful for discharged home tomorrow, awaiting PT/OT evaluations Admission and Anticipated Discharge Date Admission Date: April 09, 2020 Subjective Patient feeling less dizzy today, no headache. No nausea or vomiting and he tolerated breakfast. Still having a lot of pain in the left anterior shoulder and is unable to lift his arm to the even the level of the shoulder. Denies pain anywhere else, no chest pain or shortness of breath, no abdominal pains, no blood in the urine, no other joint pains. Telemetry with normal sinus rhythm with rates in the 50s to 60s. He has not tried to get out of bed yet and is waiting to see how he does with physical therapy. He reports that he has known about the possible cavernoma in his brain on a CT scan he had after a fall a few years ago, but was worried that perhaps it was getting bigger which is why he requested the brain MRI last night. He is interested in talking to a neurologist about this. Review of Systems Review of Systems: All systems reviewed & are unremarkable except as noted in HPI & below Physical Exam Constitutional: WD/WN, vitals as above Eyes: PERRL, conjunctivae normal, anicteric sclerae EOM intact bilaterally ENMT: external ear and nose normal, oropharynx normal Neck: trachea midline, no thyromegaly Respiratory: normal respiratory effort, lungs clear to auscultation Cardiovascular: RRR, no murmur, no edema Chest (Breasts): Chest: normal inspection of chest Gastrointestinal (Abdomen): normal bowel sounds, soft, nontender, no hepatosplenomegaly Musculoskeletal: Extremities: no cyanosis and no clubbing Left shoulder with mild edema over AC joint, exquisite positive tenderness palpation over long head of biceps tendon, active range of motion of left shoulder is very limited, passive left shoulder ROM is to about 90 degrees but with exquisite pain with internal rotation, able to flex against some resistance in the left elbow/biceps. No tenderness to palpation over the humerus or elbow or forearm With 2+ radial and ulnar pulses and sensation intact distally to the shoulder throughout the left upper extremity to light touch Skin: no rashes, warm and dry Neurologic: CN's II-XI intact bilaterally (Except tongue does protrude to the right), moves all extremities and awake; no focal motor deficits Psychiatric: A+Ox3, euthymic affect (Although seems a little bit to have some mild psychomotor retardation) Lymphatic: no lymphedema Results & Data Results & Data ([facility]) Vital Signs (Past 12 Hours) Vital Signs Temp Pulse Pulse Resp BP Pulse Ox 04/10/20 12:44 36.6 C 53 L 16 124/72 96 04/10/20 07:12 36.7 C 54 L 18 116/73 99 04/10/20 07:00 56 L 04/10/20 04:44 36.4 C L 70 18 146/65 H 95 Laboratory Results 04/10/20 04/09/20 04/09/20 Range/Units 08:24 16:43 16:43 WBC (4.8-10.8) K/uL RBC (4.7-6.1) M/uL Hgb (14.0-18.0) g/dL Hct (42-52) % MCV (80-100) fL MCH (25-34) pg MCHC (32-36) g/dL RDW Std Deviation (36.4-46.3) fL RDW Coeff of Isaac (11.5-14.5) % Plt Count (130-400) K/uL MPV (7.4-10.4) fL Immature Gran % (Auto) % Neut % (Auto) % Lymph % (Auto) % [place] % (Auto) % Eos % (Auto) % Baso % (Auto) % Neut # (Auto) (1.4-6.5) K/uL Lymph # (Auto) (1.2-3.4) K/uL [place] # (Auto) (0.11-0.59) K/uL Eos # (Auto) (0-0.5) K/uL Baso # (Auto) (0-0.2) K/uL Immature Gran # (Auto) (0.00-0.02) K/uL Sodium 142 143 (136-145) mmol/L Potassium 4.3 4.3 (3.5-5.1) mmol/L Chloride 112 H 111 H (98-107) mmol/L Carbon Dioxide 24 25 (21-32) mmol/L Anion Gap 6.0 7.0 (3-11) BUN 25 H 25 H (7-18) mg/dl Creatinine 1.32 1.58 H (0.6-1.4) mg/dl Est Cr Clr Drug Dosing 74.3 64.0 ml/min Est GFR ( Amer) 67.0 53.9 Est GFR (Non-Af Amer) 57.8 46.5 BUN/Creatinine Ratio 18.6 15.9 (10-20) Glucose 117 H 117 H (70-99) mg/dl Calcium 8.5 9.4 (8.5-10.1) mg/dl Hepatitis C Ab Screen Neg (Neg) 04/09/20 Range/Units 16:43 WBC 9.16 (4.8-10.8) K/uL RBC 5.01 (4.7-6.1) M/uL Hgb 15.5 (14.0-18.0) g/dL Hct 44.3 (42-52) % MCV 88.4 (80-100) fL MCH 30.9 (25-34) pg MCHC 35.0 (32-36) g/dL RDW Std Deviation 42.0 (36.4-46.3) fL RDW Coeff of Isaac 13.0 (11.5-14.5) % Plt Count 250 (130-400) K/uL MPV 10.2 (7.4-10.4) fL Immature Gran % (Auto) 0.4 % Neut % (Auto) 78.0 % Lymph % (Auto) 13.0 % [place] % (Auto) 7.5 % Eos % (Auto) 0.9 % Baso % (Auto) 0.2 % Neut # (Auto) 7.14 H (1.4-6.5) K/uL Lymph # (Auto) 1.19 L (1.2-3.4) K/uL [place] # (Auto) 0.69 H (0.11-0.59) K/uL Eos # (Auto) 0.08 (0-0.5) K/uL Baso # (Auto) 0.02 (0-0.2) K/uL Immature Gran # (Auto) 0.04 H (0.00-0.02) K/uL Sodium (136-145) mmol/L Potassium (3.5-5.1) mmol/L Chloride (98-107) mmol/L Carbon Dioxide (21-32) mmol/L Anion Gap (3-11) BUN (7-18) mg/dl Creatinine (0.6-1.4) mg/dl Est Cr Clr Drug Dosing ml/min Est GFR ( Amer) Est GFR (Non-Af Amer) BUN/Creatinine Ratio (10-20) Glucose (70-99) mg/dl Calcium (8.5-10.1) mg/dl Hepatitis C Ab Screen (Neg) PG Care Time/CCT Total # of Minutes Spent Total Time Spent with Patient: Total time spent is greater than 50% in coordination of care (as documented) at patient's floor/unit and/or counseling patient: Coding Level of Care Code 47600 Subseq Hosp Care Lvl 3 Diagnoses Concussion S06.0X1A Encounter type: initial encounter Loss of consciousness presence/duration: with LOC of 30 min or less Vertigo R42 Sprain of left shoulder S43.402A Encounter type: initial encounter Shoulder sprain type: unspecified sprain Fall W19.XXXA Encounter type: initial encounter Hyperlipidemia E78.5 Laceration of scalp S01.01XA Encounter type: initial encounter Intracranial mass R90.0 ANNE on CPAP G47.33; Z99.89 ELLIE (acute kidney injury) N17.9 DVT prophylaxis Z29.9 (1) Concussion Encounter type: initial encounter Loss of consciousness presence/duration: with LOC of 30 min or less Qualified Code(s): S06.0X1A - Concussion with loss of consciousness of 30 minutes or less, initial encounter (2) Sprain of left shoulder Encounter type: initial encounter Shoulder sprain type: unspecified sprain Qualified Code(s): S43.402A - Unspecified sprain of left shoulder joint, initial encounter (3) Fall Encounter type: initial encounter Qualified Code(s): W19.XXXA - Unspecified fall, initial encounter (4) Laceration of scalp Encounter type: initial encounter Qualified Code(s): S01.01XA - Laceration without foreign body of scalp, initial encounter
--- NOTE | 2020-04-10 14:59 | Neurology Consultation ---
Date of Consultation April 10, 2020 Assessment & Plan (1) ANNE on CPAP: (2) Hyperlipidemia: (3) Concussion: (4) Cerebral cavernoma: Manuel Michelle is a 59 yo man w/ PMH of HLD who p/t [facility] after fall from truck c/b head lac/dizziness/nausea, found to have an incidental cavernoma. # Right frontal cavernoma: new finding, denies any prior symptoms from it in the past (seizures, strokes, ICH, headaches) - repeat MRI brain w/ and w/o in 6 months (can be through his PCP in [place]). If any progression in size or neurological symptoms, recommend referral to neurosurgery for definitive treatment (is in an eloquent area, so surgery would potentially be difficult). - it is ok for him to continue on aspirin if needed from a cardiology standpoint as there has not been any increased risk of cerebral cavernous malformation related hemorrhage while on antiplatelet therapy (https://thejns.org/view/journals/j-neurosurg/130/6/article-p1922.xml) # Dizziness: could be post-concussive - ok to use meclizine prn and ensure adequate hydration - if no improvement in dizziness within the next few weeks, his local PCP can refer him for post-concussive vestibular rehab Thank you for this interesting consult. Plan of care discussed with primary team. Please call or text with questions History of Present Illness Attending Physician: Ioana Forrest MD History of Present Illness Manuel Michelle is a 59 yo man w/ PMH of HLD who p/t [facility] after fall from truck c/b head lac/dizziness/nausea, found to have an incidental cavernoma. In the ED, patient afebrile, BP 142/89, heart rate 88, respiratory rate 18, satting 95% on room air. Labs notable for WBC 9.16, hemoglobin 15.5, platelets 250, electrolytes within normal except for mildly elevated chloride 112, creatinine 1.32 with elevated BUN 25, glucose 117, negative hep C panel. Imaging independently reviewed. CT head shows arachnoid cyst and right frontal hyperdensity that looks most consistent with cavernoma. MRI brain shows no acute or chronic infarct, right frontal hyperintensity consistent with cavernoma, no tumor or small vessel disease noted. CT of the cervical spine shows moderate to severe disc disease at C6-C7 with multilevel moderate spondylitic spurring and multilevel neuroforaminal stenosis. He was admitted overnight due to ongoing dizziness and nausea/vomiting. On examination today, he reports that headache has subsided. He still has dizziness upon standing and some intermittent tingling in his right arm predominantly. He denies having a history of seizures, headaches, numbness, tingling, weakness or history of prior ICH. 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 Exam (Neuro) Physical Exam: General Exam: GEN: NAD, sitting in chair. HEENT: No conjunctival injection, no rhinorrhea. CV: RRR, no peripheral edema PULM: Nonlabored respirations on room air. Neuro Exam: MS: Awake and Alert. Oriented to person, place, and date. Speech fluent and appropriate without dysarthria or paraphasic errors. Language intact including naming, comprehension, repetition. Cognition and memory grossly intact. Attention intact. No neglect. CN: Visual plaza full. No extinction to double simultaneous stimuli. No optic disc edema on fundoscopic exam. PERRLA OU. EOMI without nystagmus. Facial sensation intact to LT. Facial muscles full and symmetric. Hearing intact to conversation. Uvula midline with symmetric palatal elevation. Shoulder shrug normal. Tongue midline. MOTOR: Normal bulk and tone. No pronator drift. RUE strength 5/5 at deltoids, biceps, triceps, wrist flexors and extensors; 5/5 hand grasp bilaterally (could not evaluate LUE fully as he is in a shoulder sling). BLE strength 5/5 at iliopsoas, hamstrings, quadriceps, tibialis anterior, and gastrocnemius bilaterally. REFLEXES: 1+ at biceps, triceps, brachioradialis, 1+ patella and absent Achilles bilaterally. Flexor plantar responses bilaterally. SENSORY: Intact to LT without extinction to double simultaneous stimuli. Vibration intact throughout. COORDINATION: No dysmetria or ataxia on pbrvou-le-fjic bilaterally. Normal Ashley bilaterally. GAIT: deferred given physical status Results & Data ([facility]) Vital Signs (Past 12 Hours) Vital Signs Temp Pulse Pulse Resp BP Pulse Ox 04/10/20 12:44 36.6 C 53 L 16 124/72 96 04/10/20 07:12 36.7 C 54 L 18 116/73 99 04/10/20 07:00 56 L 04/10/20 04:44 36.4 C L 70 18 146/65 H 95 PG Care Time/CCT Total # of Minutes Spent Total Time Spent with Patient: Total time spent is greater than 50% in co ordination of care (as documented) at patient's floor/unit and/or counseling patient: Coding Level of Care Code 71450 Inpt Consult Level 5 Diagnoses ANNE on CPAP G47.33; Z99.89 Hyperlipidemia E78.5 Concussion S06.0X1A Encounter type: initial encounter Loss of consciousness presence/duration: with LOC of 30 min or less Cerebral cavernoma Q28.3 (1) Concussion Encounter type: initial encounter Loss of consciousness presence/duration: with LOC of 30 min or less Qualified Code(s): S06.0X1A - Concussion with loss of consciousness of 30 minutes or less, initial encounter
[2020-04-10] MEDS ORDERED: ATORVASTATIN 40 MG TAB PO SCH (21:00)
[2020-04-11] MEDS: SODIUM CHLORIDE 0.9% 1000ML 1,000 ML IV SCH (03:27)
[2020-04-11 07:12] VITALS: TEMP 98.6; O2SAT 94
--- NOTE | 2020-04-11 11:19 | Discharge Summary ---
Date of Service April 11, 2020 Admission HPI Per Admitting Provider The patient is a 59-year-old male with a past medical history including hyperlipidemia, who presents to the emergency department with the above history. He did undergo a laceration of his scalp, which was sutured while in the ED, and underwent x-rays for a left shoulder sprain, and had a negative CT of the head for acute event. On CT there was notation of a 1.7 x 1.0 cm lesion in his right frontal lobe, and this was verified by MRI of brain to be a cavernoma. Because of persistent vertigo and inability to ambulate, along with intermittent headaches, patient was referred for evaluation for admission. Principal Diagnosis Acute concussion Discharge Exam Constitutional WD/WN, vitals as above well nourished Eyes PERRL, conjunctivae normal, anicteric sclerae normal visual plaza by confrontation ENMT external ear and nose normal, oropharynx normal Neck trachea midline, no thyromegaly Respiratory normal respiratory effort, lungs clear to auscultation Cardiovascular RRR, no murmur, no edema Rate/Rhythm: + bradycardic Gastrointestinal (Abdomen) normal bowel sounds, soft, nontender, no hepatosplenomegaly Musculoskeletal Extremities: + limited ROM of upper extremity (left shoulder sprain) Left Skin no rashes, warm and dry Neurologic PERRL, EOMI, accommodation nl, no face palsy, no dysarthria CN's II-XI intact bilaterally Psychiatric A+Ox3, euthymic affect Discharge Data Allergies Allergy/AdvReac Type Severity Reaction Status Date / Time oxycodone AdvReac Vomiting Unverified 04/09/20 21:35 Consultations 04/09/20 22:30 ED Decision to Admit Stat 04/10/20 00:58 Consult Case Management - Discharge Planning Routine 04/10/20 08:05 Consult Neurology Routine Ordered Studies 04/09/20 16:28 CT cervical spine wo con Stat CT head/brain wo con Stat 04/09/20 18:20 MR brain wo/w con Urgent Hospital Course (1) Concussion: Concussion/postconcussive syndrome with vertigo and ambulatory dysfunction-slightly improved -No headaches, no nausea, no visual changes, still seems to have some mild psychomotor retardation Vertigo is improved MRI of the brain with possible cavernoma -Consult neurology for further input (2) Vertigo: See above (3) Sprain of left shoulder: X-ray without acute findings, no fracture -With exquisite tenderness to palpation over the long head of the biceps tendon and poor range of motion secondary to pain at this time -Recommend ice pack every shift, shoulder sling for now Tylenol as needed for pain -Outpatient follow-up with PCP and/or orthopedic surgery (4) Fall: See above-fell accidentally from his truck about 6 to 8 feet and landed on the pavement PT/OT evaluations (5) Hyperlipidemia: Continue Lipitor 40 mg daily Patient reports he previously was on several different medications for significantly elevated cholesterol, but he ran out and was not given refills as his PCP would not fill it without seeing him in the office. He was not able to be seen due to COVID. -Would plan on giving him at least a 30-day supply of his Lipitor upon discharge from the hospital at his request until he can get into see his PCP in [place], [place] (6) Laceration of scalp: Repaired in the ED. 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 seen on brain MRI Appreciate neurology input on this as far as any follow-up that is needed Only focal neurologic abnormality I see is that his tongue protrudes to the right, unsure if this is related (8) ANNE on CPAP: Does not have his home CPAP here, but using 2 L nasal cannula at nighttime (9) ELLIE (acute kidney injury): Creatinine elevated upon admission at 1.5 and is now down to 1.32 Unclear what baseline is Continue normal saline at 125 mL's per hour -Follow BMP in the morning (10) DVT prophylaxis: SCDs Dispo-continued stay, remain on observation as per case management recommendation Hopeful for discharged home tomorrow, awaiting PT/OT evaluations Total Time Total Time Spent Total Time Spent (In Minutes): 35 mins Discharge Plan Discharge Items Reason For Visit: CONCUSSION, ELLIE Follow-up/Referrals: PCP,NO [Primary Care Provider] - Medications and DC Order Prescriptions: No Action atorvastatin 40 mg tablet 0 mg PO HS RF: 0 Krames/Other Patient Handouts: Prediabetes, High Blood Sugar (Hyperglycemia), Diabetes: Meal Planning Admission Data Admit Date/Time: 04/09/20 23:58 Attending Provider: Jose Cooper Admit Provider: Tam Donovan Primary Care Provider: PCP,NO Other Providers: Tam Donovan Christina R. Coding Level of Care Code D/C Day Management >30 mins Diagnoses Concussion S06.0X1A Encounter type: initial encounter Loss of consciousness presence/duration: with LOC of 30 min or less Vertigo R42 Sprain of left shoulder S43.402A Encounter type: initial encounter Shoulder sprain type: unspecified sprain Fall W19.XXXA Encounter type: initial encounter Hyperlipidemia E78.5 Laceration of scalp S01.01XA Encounter type: initial encounter Intracranial mass R90.0 ANNE on CPAP G47.33; Z99.89 ELLIE (acute kidney injury) N17.9 DVT prophylaxis Z29.9
[2020-04-11 12:42] VITALS: BP 123/80; PULSE 67
== END 2020-04-11 15:32 | disposition home or self-care (01) ==
LOC: 2N 16:15 → ED 16:15 → SUATTDRO 23:58 → 2N 04-10 00:25